=== PATIENT | female | born 1995 | race Caucasian/White ===

== ENCOUNTER 2023-07-21 18:56 | Emergency (ER) | payer BC, SELFPAY ==
[2023-07-21 19:03] VITALS: BP 118/75; PULSE 67; RESP 16; TEMP 36.5; O2SAT 98; BMI 19.0
--- NOTE | 2023-07-21 19:05 | ED.PSYCH ---
HPI - Psych General Chief Complaint: Anxiety Stated Complaint: keeps having panic attacks Time Seen by Provider: 07/21/23 20:19 Source: patient Mode of arrival: ambulatory Limitations: no limitations History of Present Illness HPI Narrative: Patient is a 28 year old assigned female at with no reported medical history presenting to the emergency department today with increased anxiety secondary to multiple life stresses. Patient states that approximately 3 months ago she accepted a job in the area and the work environment has been very stressful. Patient states that she wants to leave this work place but due to her current financial situation, it is not feasible. Patient states that she has been feeling much more anxious as of late with nausea and feeling worked up - especially before going into work. Patient states that she has an appointment tomorrow with a psychiatrist and in a few weeks, has an appointment with a new primary care provider. Patient states that her sister is currently on Buspirone for anxiety and is doing well with it. Patient states that she would like to be started on that, if possible. Patient denies any thoughts of hurting herself or any one else. Patient denies any dizziness, lightheadedness, abdominal pain, nausea, vomiting, fever, chills, blurry vision, double vision, loss of vision, chest pain, difficulty breathing, shortness of breath, back pain, night sweats, pain with urination, increased urinary frequency, increased urinary urgency, blood in her urine or stool, syncope or a near syncopal episode, recent trauma or falls, bowel incontinence, bladder incontinence, bowel retention, bladder retention, or any other complaints at this time. MD complaint: anxiety Onset (ago): month(s) Duration: getting worse History of same: No Relieving factors: none Exacerbating factors: other (work) Associated psychiatric symptoms: racing thoughts Associated symptoms: denies other symptoms Treatments prior to arrival: none Related Data Allergies Allergy/AdvReac Type Severity Reaction Status Date / Time No Known Allergies Allergy Verified 07/21/23 19:00 Review of Systems Constitutional: Constitutional: Reports no additional constitutional complaints, Denies chills, Denies fever(s) and Denies night sweats Eyes: Eyes: Reports no additional eye complaints, Denies blurry vision, Denies change in vision, Denies diplopia, Denies eye discharge, Denies loss of vision and Denies eye pain ENT: Denies dizziness Cardiovascular: Cardiovascular: Reports no additional cardiovascular complaints, Denies chest pain, Denies lightheadedness, Denies Loss of Consciousness and Denies dyspnea Respiratory: Respiratory: Reports no additional respiratory complaints and Denies dyspnea Gastrointestinal: Gastrointestinal: Reports no additional gastrointestinal complaints, Denies abdominal pain, Denies melena, Denies hematochezia, Denies change in bowel habits and Denies change in stool character Genitourinary: Genitourinary: Denies hematuria, Denies urinary frequency, Denies dysuria, Denies urinary incontinence, Denies urinary hesitancy and Denies urinary urgency Musculoskeletal: Musculoskeletal: Reports no additional musculoskeletal complaints, Denies numbness and Denies tingling Neurologic: Denies dizziness, Denies loss of vision, Denies numbness and Denies tingling Psychiatric: Psychiatric: Reports anxiety Endocrine: Endocrine: Reports no additional endocrine complaints Hematologic/Lymphatic: Hematologic/Lymphatic: Reports no additional hematologic/lymphatic complaints Allergic/Immunologic: Allergic/Immunologic: Reports no additional allergic/immunologic complaints PMFSH Past Medical History Attestation statement: The following information was validated with the patient. Source: old records reviewed and nursing notes reviewed Social History Social History Smoked in Last 30 Days: No Advance Directives: No Advance Directives Information Provided: No Physical Exam Vital Signs: Vital Signs: Last Vital Signs Temp 97.7 F 07/21/23 19:03 Pulse 67 07/21/23 19:03 Resp 16 07/21/23 19:03 BP 118/75 07/21/23 19:03 Pulse Ox 98 07/21/23 19:03 O2 Del Method Room Air 07/21/23 19:03 BMI result Body Mass Index 19.0 Const: General: cooperative, no acute distress, alert and awake Nutritional Appearance: well nourished Orientation/consciousness: patient oriented x3 Limitations: no limitations HEENT: Head: Yes normal to inspection and Yes atraumatic Ears: hearing grossly normal bilaterally and external ears normal General nose exam: Normal external nose present, no nasal discharge noted and no epistaxis Face and sinus: Yes normal facial exam, No abrasion and No laceration Mouth: Normal oral and palatal mucosa present, no drooling and no muffled voice Eyes: General: appearance normal, both eyes and all related structures Periorbital: periorbital findings normal Eyelids: Yes eyelids normal Conjunctivae: conjunctivae normal Pupils: Equal, round and reactive pupils present EOM: EOMs intact bilaterally Neck: Neck: Yes normal visual inspection, Yes full ROM and Yes no lymphadenopathy Chest: Chest palpation & inspection: normal inspection of the chest Resp: Effort & Inspection: normal respiratory effort and able to speak in complete sentences GI: Inspection: Yes normal to inspection Neuro: General: patient oriented x3 and moves all extremities Cranial nerves: Yes Equal, round and reactive pupils present Cognition (Neuro): normal cognition Motor exam (neuro): 5/5 motor strength present throughout Sensory Exam: Normal double simultaneous stimulation for sensation Coordination: [id number] test normal Extrem: General: Yes normal to inspection, Yes full ROM and Yes capillary refill normal Psych: Appearance: grossly normal Mental Status: mental status grossly normal Affect: normal affect Attitude: cooperative Thought process: Normal thought process present Thought content: Normal thought content present Insight: Good insight present (Psych) Course Course Course Narrative: This is a rapid medical exam: Additional HPI, ROS, PE not included below will be deferred to primary provider. Patient is a 28-year-old female with history of anxiety presenting to the emergency department with complaint of increased anxiety attacks and difficulty sleeping over the past week. Taking an old Xanax prescription with temporary relief, but symptoms return when medication wears off. States she is living in [place], [place] but was driving through the area and had acute anxiety. Denies suicidal or homicidal ideation but has recently felt the impulse to pinch herself or pull her hair during acute episodes as a physical release. Reports recent increased stressors. Has a therapist, seeing new PCP in 2 weeks. Medical Decision Making Medical Decision Making MDM Narrative: Patient is a 27 year old assigned female at with no reported medical history presenting to the emergency department today with increased anxiety. Patient's physical exam was unremarkable. Patient's blood work was unremarkable. Patient's EKG was unremarkable. I explained my physical exam findings as well as all test results to the patient. I answered all questions asked by the patient. Patient was given a dose of Hydroxyzine while in the department which she tolerated well. I had an in depth discussion with the patient of the risks vs. benefits of starting Buspirone from the Emergency Department. She verbalized understanding and stated that she would rather be started on that than an SSRI. Together, we agreed that starting on 10mg and titrating up to 20mg would be best. I stressed the importance of the patient taking her medication as prescribed. I stressed the importance of the patient following up with her primary care provider in a few weeks as scheduled and with her psychiatrist as scheduled tomorrow (07/22/2023). I stressed the importance of the patient returning to the emergency department immediately if her symptoms were to worsen or if she were to develop any suicidal ideation, dizziness, shortness of breath, difficulty breathing, chest pain, blurry vision, loss of vision, nausea, vomiting, abdominal pain, fever, chills, back pain, or any other complaints. Patient verbalized agreement and understanding with this treatment plan and discharge. Differential Diagnosis Differential Diagnoses: The differential diagnosis associated with the presentation includes Anxiety Panic attacks Admission/Observation Consideration of admission/observation: Escalation of care including admission/observation considered Patient would have been admitted to the hospital had her work up had any findings where hospital admission was appropriate and her clinical presentation warranted hospital admission. Lab Data [facility] Lab Attestation statement: I reviewed the patient's lab results. My interpretation of these results are in the [facility] Rationale portion of this note. 07/21/23 21:35 07/21/23 21:35 Labs: Lab Results 07/21/23 Range/Units 21:35 WBC 10.2 (4.8-10.8) X10*3/uL RBC 4.28 (4.20-5.50) X10*6/uL Hgb 13.0 (12.0-16.0) g/dl Hct 36.7 L (37.0-47.0) % MCV 85.7 (80.0-98.0) fL MCH 30.4 (27.0-33.0) pg MCHC 35.4 H (31.0-35.0) g/dl RDW 11.7 (11.0-16.0) % Plt Count 373 (160-400) X10*3/uL MPV 9.3 L (9.4-12.3) fL Immature Gran % (Auto) 0.4 (0.0-0.4) % Neut % (Auto) 60.6 (45-73) % Lymph % (Auto) 28.9 (20-40) % [place] % (Auto) 9.1 (2-11) % Eos % (Auto) 0.8 (0-4) % Baso % (Auto) 0.2 (0-2) % Lymph # (Auto) 3.0 (1.2-4.9) X10*3/uL [place] # (Auto) 0.9 (0.1-1.2) X10*3/uL Eos # (Auto) 0.1 (0.0-0.4) X10*3/uL Baso # (Auto) 0.0 (0.0-0.2) X10*3/uL Abs Immat Gran (auto) 0.04 H (0.00-0.03) X10*3/uL Absolute Neuts (auto) 6.2 (2.0-8.3) x10*3/uL Absolute Nucleated RBC 0.000 (0.0-0.012) X10*3/uL Nucleated RBC % (auto) 0.0 (0.0-0.2) /100WBC Sodium 141 (135-145) mmol/L Potassium 3.5 (3.3-5.1) mmol/L Chloride 106 (96-108) mmol/L Carbon Dioxide 27 (22-29) mmol/L Anion Gap 12 (12-20) BUN 12 (9-16) mg/dL Creatinine 0.74 (0.5-1.4) mg/dL Estim Creat Clear Calc 112.4 Estimated GFR > 60 Random Glucose 86 (60-115) mg/dL Calcium 9.3 (8.4-10.2) mg/dL Total Bilirubin 0.4 (0.0-1.0) mg/dL AST 17 (5-31) U/L ALT 13 (0-31) U/L Alkaline Phosphatase 58 (39-117) U/L Total Protein 7.3 (6.5-8.0) g/dL Albumin 4.3 (3.5-5.0) g/dL Beta HCG, Quant < 2 mIU/mL Independent Interpretation I performed an independent interpretation of an: EKG Interpretation: Vent. Rate: 57 BPM OK interval: 154 ms QRS Duration: 82 ms QT/QTC-Baz 438/426 ms P-R-T axes 76 54 55 Sinus bradycardia Otherwise normal ECG Prescription Management I considered prescription management with: Other (Buspirone and Hydroxyzine) Discharge Plan Discharge Clinical Impression: Acute anxiety Patient Disposition: Home, Self-Care Instructions: Anxiety (ED) Additional Instructions: Follow up with your primary care provider as scheduled in a few weeks. Follow up with your psychiatrist as scheduled tomorrow. Return to the emergency department immediately if your symptoms worsen or if you develop any suicidal ideation, homicidal ideation, dizziness, shortness of breath, difficulty breathing, chest pain, blurry vision, loss of vision, nausea, vomiting, abdominal pain, fever, chills, back pain, or any other complaints. [facility] at [facility]: [address] [place] [id number] Walk in hours from 10am - 12pm Open from 10am - 12pm [facility] Crisis Services: [address] [place] [address] Walk in hours from 10am - 12pm Open 04/12 [facility]: [address] [place] [id number] [address] [place] [id number] Hours: M-F 8am to 8pm Sunday and Sunday 9am to 5pm Referrals: [facility] [Provider Group] (If your appointment with your primary care provider falls through, please call to establish and follow up with a primary care provider.) [facility] Primary [facility] [place] [Provider Group] (If your appointment with your primary care provider falls through, please call to establish and follow up with a primary care provider.) [facility] [Provider Group] (If your appointment with your primary care provider falls through, please call to establish and follow up with a primary care provider.) Print Language: Singaporean
--- NOTE | 2023-07-21 21:24 | ECG_ITS ---
Test Reason : ANXIETY Blood Pressure : / mmHG Vent. Rate : 057 BPM Atrial Rate : 057 BPM P-R Int : 154 ms QRS Dur : 082 ms QT Int : 438 ms P-R-T Axes : 076 054 055 degrees QTc Int : 426 ms Sinus bradycardia Otherwise normal ECG No previous ECGs available Referred By: Elenita Cunningham Electronically Signed By:WEI NATION MD
[2023-07-21 21:40] LABS: MANUAL DIFF FLAG NO
[2023-07-21 21:41] LABS: Basophils Percent Auto 0.2 % (0-2); Eosinophils Absolute Auto 0.1 X10*3/uL (0.0-0.4); Eosinophils Percent Auto 0.8 % (0-4); Hematocrit 36.7 % (37.0-47.0); Imm Gran Abs Auto 0.04 X10*3/uL (0.00-0.03); Imm Gran Pct Auto 0.4 % (0.0-0.4); Lymphocytes Percent Auto 28.9 % (20-40); Mean Corpuscular HGB Conc 35.4 g/dl (31.0-35.0); Mean Corpuscular Hemoglobin 30.4 pg (27.0-33.0); Mean Corpuscular Volume 85.7 fL (80.0-98.0); Mean Platelet Volume 9.3 fL (9.4-12.3); Monocytes Absolute Auto 0.9 X10*3/uL (0.1-1.2); Monocytes Percent Auto 9.1 % (2-11); Neutrophils Absolute Auto 6.2 x10*3/uL (2.0-8.3); Neutrophils Percent Auto 60.6 % (45-73); Platelet Count 373 X10*3/uL (160-400); Red Blood Count 4.28 X10*6/uL (4.20-5.50); Red Cell Distribution Width 11.7 % (11.0-16.0); White Blood Count 10.2 X10*3/uL (4.8-10.8)
[2023-07-21 22:10] LABS: Alanine Aminotransferase 13 U/L (0-31); Albumin Level 4.3 g/dL (3.5-5.0); Alkaline Phosphatase 58 U/L (39-117); Anion Gap 12 (12-20); Aspartate Amino Transferase 17 U/L (5-31); Bilirubin Total 0.4 mg/dL (0.0-1.0); Blood Urea Nitrogen 12 mg/dL (9-16); Calcium 9.3 mg/dL (8.4-10.2); Carbon Dioxide 27 mmol/L (22-29); Chloride 106 mmol/L (96-108); Creatinine Clr Calc Pharmacy 112.4; Estimated Glomerular Filt Rate > 60; Glucose Random 86 mg/dL (60-115); HCG Quantitative < 2 mIU/mL; Potassium 3.5 mmol/L (3.3-5.1); Sodium 141 mmol/L (135-145); Total Protein 7.3 g/dL (6.5-8.0)
[2023-07-21] MEDS: hydrOXYzine HCL 10 MG TABLET PO (22:34)
[2023-07-21 22:45] VITALS: BP 99/55; PULSE 71; RESP 14; TEMP 36.9; O2SAT 99
== END 2023-07-21 23:20 | disposition home or self-care (01) ==
PROVIDERS: Physician Assistant Medical; Emergency Provider Emergency Medicine Emergency Medical Services
DX: F41.9 Anxiety disorder, unspecified (principal); R11.0 Nausea
CPT/HCPCS: 36415; 80053; 84702; 85025; 93005; 99283; 99285

== ENCOUNTER → 2023-07-21 21:24 | Outpatient (BNV) | payer BC, SELFPAY | PROVIDERS: Emergency Provider Emergency Medicine Emergency Medical Services; Visit Provider Internal Medicine Cardiovascular Disease | DX: R00.1 Bradycardia, unspecified (principal) | CPT/HCPCS: 93010 ==